=== PATIENT | male | born 1980 | race Caucasian/White ===

== ENCOUNTER 2025-05-27 06:19 | Observation (INO) | payer OTHER, SELFPAY ==
[2025-05-27] VITALS (11 sets, daily range): BP systolic 99–176; BP diastolic 49–97; BMI 36.0
[2025-05-27 01:59] LABS: Hematocrit 44.5 % (39.0-52.0); Hemoglobin 15.6 g/dL (13.0-18.0); Mean Corp Hgb Conc. 35.1 g/dL (33.0-37.0); Mean Corpuscular Volume 87.9 fL (80.0-94.0); Nucleated Red Blood Cells % 0 % (-); Platelet Count 337 10^3/uL (130-400); Red Cell Dist. Width 12.6 % (11.5-14.5)
[2025-05-27 02:23] LABS: ALT (SGPT) 20 U/L (0-50); AST (SGOT) 21 U/L (17-59); Albumin 4.6 g/dl (3.5-5.0); Alkaline Phosphatase 85 U/L (38-126); Blood Urea Nitrogen 20 mg/dl (9-20); Calcium 9.8 mg/dl (8.4-10.2); Carbon Dioxide 26 mmol/L (22-30); Chloride 106 mmol/L (98-107); Estimated Creatinine Clearance > 125 ml/min; Glucose 89 mg/dl (70-99); Potassium 4.2 mmol/L (3.5-5.1); Sodium 140 mmol/L (135-145); Total Protein 7.0 g/dl (6.3-8.2); eGFR > 60.00
--- NOTE | 2025-05-27 02:31 | ED.GENMED ---
History of Present Illness
General
Chief Complaint: Flank Pain
Source: patient
Exam Limitations: none
Time Seen by Provider: 05/27/25 01:28
Nursing documentation reviewed up to this point in time: agreed with
History of Present Illness
History of Present Illness:
Patient is a 45-year-old male who presents to the ER with sudden onset of left upper rib pain. Patient reports around 7:30 PM he was sitting in a restaurant [place] and that he denies any injury reported sudden onset of pain. He reports he went home
and pain progressive worsened. He felt short of breath and had extreme pain with taking a deep breath. He did take ibuprofen.
Pt with no prior history of DVT PE. He does note that he noticed his left knee has been hurting recently but denies any calf swelling or leg swelling. Denies any actual leg pain. 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
Phy Exam
General Physical Exam
General Presentation: no apparent distress
General age: appears stated age
General Skin: warm and dry
General Habitus: normal
General Mental: alert
General Hydration: appears well hydrated
Cardiovascular Exam
Cardiovascular Exam: regular rate/rhythm, no murmur and normal peripheral pulses
Pulmonary Exam
Pulmonary Exam: lungs clear and other (+ tenderness to left anterior rib normal inspection to chest)
Neurological Exam
Neurological Exam: alert and oriented x3
Musculoskeletal Exam
Musculoskeletal Exam: full ROM
Skin Exam
Skin Exam: normal color
Psychiatric Exam
Psychiatric Exam: normal mood/affect
Course
Orders/Labs/Results
Orders:
Orders
05/27/25 00:12
EKG [Electrocardiogram (*1)] Urgent
Reason for Study: Chest Pain
EKG- Treatment ONCE
05/27/25 01:43
Complete Blood Count/With Diff Urgent
Comprehensive Metabolic Panel Urgent
Troponin I Urgent
05/27/25 02:26
CT Chest PE Study Urgent
Comment:
Reason For Exam: SOB pain with deep breath
05/27/25 02:27
0.9% Sodium Chloride 1000 ml [Nss] 1,000 ml IV BOLUS
Ketorolac [Toradol] 15 mg IV NOW STA
05/27/25 Breakfast
Regular
At Your Request: Full Participation
Does patient need a safe tray?: No
05/27/25 06:02
Admit/Transfer Patient As Directed
Co-Sign Provider:
Level of Care: Observation services
Assign to:: Telemetry
Physician / Group: Dustin
Diagnosis: Chest Pain
Reason for Telemetry: Chest Pain syndromes
Date to Stop Telemetry: 05/29/25
Time to Stop Telemetry: 11:00
PRN Pain Medication Management As Directed
May give lesser potent ordered pain med per pt: Yes
preference::
Protocol:: Medication orders for pain may be administered in a
manner that supports deferring to patient preference
when the pt is:
- Requesting an ordered lesser potent pain medication.
Least to most potent pain medications are defined
as: acetaminophen < NSAID < tramadol < opioids
(morphine, oxycodone, hydromorphone).
- Requesting a lesser dose of the same medication IF
ORDERED.
- Requesting a less intrusive route of administration
if both routes are prescribed by the provider (PO <
IV).
05/27/25 06:03
Code Status As Directed
Resuscitation Status: Full Code
05/27/25 07:30
Acetaminophen [Tylenol] 650 mg PO Q4HPRN PRN
Ketorolac [Toradol] 15 mg IV Q6HPRN PRN
05/27/25 07:30
Activity As Directed
Activity Level: Ambulate
EKG with chest pain [ECG as needed] As Directed
ECG as needed for:: Chest Pain
I/O [Intake/ Output] As Directed
Frequency: Per unit guidelines
Vital Signs As Directed
Frequency: Per unit guidelines
Weight As Directed
Frequency: Daily
US Legs, Bilateral [US Periph Venous LOWER Ext Erlin] Urgent
Comment:
Reason For Exam: Calf pain / Chest pain
DX Deep Vein Thrombosis Video Routine
05/27/25 08:00
Pantoprazole [Protonix] 40 mg PO DAILY
05/27/25 09:07
Troponin I Q6H
05/27/25 13:26
Troponin I Q6H
05/27/25 18:00
Enoxaparin Sodium [Lovenox] 40 mg SC QPM
05/29/25 11:00
DC Protocol for Telemetry ONCE
Abnormal Lab Results
05/27/25
01:43
WBC 15.3 H 10^3/uL
(4.8-10.8)
Abs Immat Gran (auto) 0.1 H 10^3/uL
(0-0.05)
Absolute Neuts (auto) 10.2 H 10^3/uL
(1.4-6.5)
Absolute Monos (auto) 1.9 H 10^3/uL
(0.1-0.6)
Lymphocytes % 18.9 L %
(20.5-51.1)
Monocytes % 12.1 H %
(1.7-9.3)
05/27/25 01:43
05/27/25 01:43
Vital Signs
Initial and Last Documented VS:
Initial Vital Signs
Temp Pulse Resp BP Pulse Ox
98 F 84 20 176/97 99
05/27/25 00:08 05/27/25 00:08 05/27/25 00:08 05/27/25 00:08 05/27/25 00:08
Last Documented Vital Signs
Temp Pulse Resp BP Pulse Ox
97.6 F 68 16 125/76 97
05/27/25 15:00 05/27/25 15:00 05/27/25 15:00 05/27/25 15:00 05/27/25 15:00
Retail Support Specialist consulted with Physician
Retail Support Specialist consulted with physician?: Yes
Name of Physician Consulted: Cooper
MDM/Problems Addressed
Differential Diagnosis Includes:
Not limited to muscle pain, pleuritic pain, PE
MDM/Problems Addressed:
As documented patient is a 45-year-old male with complaints of sudden onset of left rib discomfort since 7:30 PM. No known injury. Pain with deep breath. Patient is a transport truck driver and with symptoms we will order CT to rule out PE. Patient denies
any recent cough illness fever chills white count is minimally elevated lungs are clear patient is tender along the left lateral rib.
Case discussed with Dr. Gamboa. CAT scan shows moderate to severe motion artifact no evidence of PE to the level of the lobar branches however recommend V/Q for further imaging and visualization. As discussed with Dr. Gamboa would admit for
continued observation and further testing
*Radiology
Radiology exam reviewed: radiology read reviewed
*Pulse Oximetry
SaO2: 95
Oxygen Mode of Delivery: Room air
Patient hypoxic: no
*Critical Care Note
Total Time (30-74mins, 75-104mins- exclusive of procedures): Not Applicable
ED Attending Note
-
Portions of this chart may have been created with voice recognition software.� Occasional wrong word or��sound alike� substitutions may have occurred due to the inherent limitations of voice recognition software.
Discharge Plan
Departure
Patient Disposition: Admit
Date of Disposition: 05/27/25
Time of Disposition: 04:08
Admit to: Med/Surg
Admit to doctor: hospitalist
Presentation/result/management discussed w/ accepting MD/DO: Hospitalist
Patient with high blood pressure during this ER visit?: Yes
Condition: Fair
Covid-19: Not Applicable
Discharge Problem:
Chest pain, Dyspnea
Interventions
Interventions:
*Risk Screen - Suicide Last Done: 05/27/25 07:45
*General Assessment Last Done: 05/27/25 01:19
*Neglect/Abuse Screening Last Done: 05/27/25 00:08
*ED- Fall Risk Assessment Last Done: 05/27/25 00:08
*ED COVID-19 Vaccine History Last Done: 05/27/25 07:45
*Nursing Disposition Last Done: 05/27/25 07:22
HG-Hesbmf-Rthsqllvxb Assessment Last Done: 05/27/25 01:19
ED-Male Genitourinary Assessment Last Done: 05/27/25 01:19
Discharge Date and Time
Discharge Date/Time: 05/27/25 07:23
[2025-05-27] MEDS: TORADOL 15 MG IV ×2 (02:34→15:17)
[2025-05-27] MEDS: NSS 1000 IV (02:34)
[2025-05-27 02:36] LABS: Troponin I < 0.012 ng/ml
--- NOTE | 2025-05-27 06:06 | HPS.HSE ---
Family Physician
-
Family Physician: Elle Martin MD
Chief Complaint
-
Chest Pain
History of Present Illness
Patient is a 45y M with PMH significant for hypertension who presents to ED complaining of sharp, left-sided chest pain this evening. Patient states that he was feeling well until her developed sudden, sharp pain in the L upper / lateral chest
when sitting down for dinner. He notes that the pain in the lateral left chest continued to progressively increase throughout the evening. By the time he presented to the ED, he was taking very shallow respirations and felt SOB due to the pain.
He denies any recent cough, fevers / chills, abdominal pain, N/V/D. He denies any prior IA, CV disease, etc. No prior h/o similar symptoms.
Patient received Toradol in the ED and at the time of my examination his pain is much improved - though not fully resolved.
He states that the pain is still present with movement or with deep breathing. He states that this PM in the ED there was a focal, tender spot on exam - though that is no longer evident.
Patient reports that he has recently been having cramping / pain in the L knee / LLE when sitting for any extended period. 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
Medical History
Past Medical History
Past Medical History: Reports Other
Additional Past Medical History:
Hypertension
Obesity
GERD
Past Surgical History: Reports Other
Additional Past Surgical History:
RLE Reconstructive Surgery (s/p trauma)
Social History
Tobacco: Former Smoker (Quit smoking 1 year ago. Approx 20 pack years total use.)
Alcohol: Occasional
Drug: None
Personal:
Living: With Family
Family History
Family History: Not pertinent
Allergies / Home Medications
Allergies reflects when Allergies were last updated in [facility].
Home Medications with original date entered in [facility]
Allergy/Medication List:
Allergies
Allergy/AdvReac Type Severity Reaction Status Date / Time
No Known Allergies Allergy Unverified 05/27/25 00:07
Home Medications
lisinopril 10 mg tablet 10 mg PO DAILY 05/27/25
omeprazole magnesium 20 mg tablet,delayed release (Prilosec OTC) 20 mg PO DAILY 05/27/25
propranolol 120 mg capsule,24 hr,extended release 120 mg PO DAILY 05/27/25
Review of Systems
-
History Source: Patient
A 12 point ROS was completed and negative except as noted: Yes
Constitutional: Denies Fever or Chills
EENT: Denies Sore Throat
Respiratory: Reports Trouble Breathing; Denies Cough or Hemoptysis
Cardiac: Reports Chest Pain; Denies Diaphoresis or Palpitations
Abdomen/GI: Denies Abdominal Pain, Nausea, Vomiting or Diarrhea
: Denies Dysuria or Flank Pain
Musculoskeletal: Denies Joint Pain or Edema
Neurological: Denies Dizzy or Headache
Psych: Denies Depression or Anxiety
Physical Exam
Vital Signs
Vital Signs
Temp Pulse Resp BP Pulse Ox
98 F 76 19 99/59 95
05/27/25 00:08 05/27/25 05:00 05/27/25 05:00 05/27/25 05:00 05/27/25 05:00
Physical Exam
General: Other (45y M in no acute distress.)
HEENT: Moist mucous membranes and PERRLA
Respiratory: Clear; No Wheezes, Rales or Rhonchi
Cardiac: S1/S2 and Regular Rhythm; No Murmur
GI: Soft, Non Tender, Non Distended and Normal Bowel Sounds
Musculoskeletal: No Clubbing, No Cyanosis and No Edema
Neuro: AO x 3
Laboratory Results
-
05/27/25 01:43
05/27/25 01:43
Laboratory Results
Total Bilirubin 0.5 mg/dl (0.2-1.3) 05/27/25 01:43
AST 21 U/L (17-59) 05/27/25 01:43
ALT 20 U/L (0-50) 05/27/25 01:43
Alkaline Phosphatase 85 U/L (38-126) 05/27/25 01:43
Troponin I < 0.012 ng/ml 05/27/25 01:43
Impression/Plan
-
A/P: Patient is a 45y M with PMH significant for hypertension who presents to ED complaining of chest pain and SOB.
Chest Pain
- Observe overnight for further evaluation and treatment.
- CTA done in the ED with no evidence of PE in large vessels. Further interpretation limited by motion artifact. Await formal / local read for any additional info.
- V/Q scan was recommended for further evaluation. Will order - though overall suspicion for PE here is low.
- No tachycardia, hypoxemia, etc.
- Check LE US with recent LE pain / cramps.
- Continue supportive care / Toradol PRN / etc.
- Musculoskeletal source of pain (intercostal sprain, rib dysfunction, etc) seems most likely.
- Follow for any new / worsening symptoms.
Benign Hypertension
- BP is on the low side here in the ED.
- Hold usual hypertensive medications acutely.
GERD
- Continue daily PPI.
DVT Prophylaxis: Lovenox
Code Status: Full
[2025-05-27] MEDS: PROTONIX 40 MG PO (07:47)
--- NOTE | 2025-05-27 09:10 | W.PN.UPDATE ---
Addendum entered and electronically signed by Roderick Lawson MD 05/27/25 13:58:
D-dimer 0.28 - negative
Le venous doppler neg.
V/q scan cancelled
d/c home with symptomatic care for pain
Original Note:
Update Note
Progress Note Update
Non billable note
1. Left chest pain - in mid axillary line at lower most ribs, CTA images reviewed and no atelectasis/pneumonia. Motions artifacts on CTA chest but no large vessle PE. V/q scan and LE venous doppler ordered but low probability for VTE based on h/o.
Check D-dimer level and if negative essentialy rules out VTE issues. Chest pain likely can be explained MSK in nature or pleuritic in nature. Pain is already improved and patient able to get around without feeling shortness of breath. Tylenol vs
short nsaid use recommended.
2. Essential HTN - continue home meds of lisinopril and propranolol
Possible d/c today if D-dimer negative,.
[2025-05-27 09:35] LABS: D-Dimer 0.28 ug/mlFEU (0.00-0.50)
[2025-05-27 09:55] LABS: Troponin I < 0.012 ng/ml
--- NOTE | 2025-05-27 11:54 | CM ---
Initial assessment completed with patient who lives with his , 12 y/o son and 10 y/o daughter in a rancher style home with basement, 4 steps to enter. 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
DME or in-home services. No VA benefits. No psychiatric hospitalizations. No HC-POA. PCP is Dr. Elle Martin. Pharmacy is [facility] in [place]. Obs letter completed. Discharge POC: Home with no needs.
--- NOTE | 2025-05-27 12:02 | CM ---
Patient has been medically cleared for discharge to home with no additional skilled services. Patient has arranged for transport home.
[2025-05-27 14:31] LABS: Troponin I < 0.012 ng/ml
[2025-05-27] MEDS: TYLENOL 650 MG PO (15:15)
--- NOTE | 2025-05-27 16:28 | W.DCSUMMARY ---
Discharge Summary
Discharge Data
Date of Admission: 05/27/25
Date of Discharge: 05/27/25
-
Pending Results: No
Hospital Course
Discharging Physician : Dr Roderick Lawson
Disposition : To home
Primary care physician : Dr Elle Martin
Principal Discharge diagnosis :
Left lower rib cage pain likely pleuritic versus musculoskeletal nature
Chronic Discharge diagnosis :
Essential hypertension
Gastroesophageal reflux disease
Hospital Course :
Patient is a 45-year-old male with no significant past medical history except hypertension/reflux came to ER after having new onset of left-sided chest pain in mid axillary line at the lower rib cage. This was acute in onset and sharp in nature
with patient initially feeling some point tenderness with questionable swelling in the area although it ER evaluation nothing was found on exam. A CTA chest was done which was poor quality although ruled out any large vessel blood clots. Troponin
2 sets were negative and EKG did not show any new changes. Patient was admitted for further monitoring with plan for possible VQ scan and lower extremity venous Doppler. D-dimer checked showed normal level. Lower extremity venous Doppler was
negative. VQ scan was canceled. Patient pain was significantly improved within few hours and did not have any associated issues. Pain is likely pleuritic versus musculoskeletal in nature. Patient was provided symptomatic care and discharged home.
Important imaging findings :
None
Procedure findings :
None
Discharge Plan
-
Patient Disposition: Home (Routine Discharge)
Discharge Diagnosis/Procedures: Left sided chest pain
Condition: Fair
Diet: Regular
Activity: As tolerated
Driving Restrictions: As prior to admission
Bathing Restrictions: OK to Shower
Activity Restrictions/Additional Instructions:
Take tylenol for pain control.
Referrals:
Elle Martin MD [Family Provider, [facility]] - in one week
Prescriptions:
New
(DME) Work note
See Rx Instructions .Route .MEDSULY Qty: 1 0RF
Rx Instructions:
Mr Jatinder Hooks is cleared to go back to work from 05/31/25.
acetaminophen [Tylenol Extra Strength] 500 mg tablet
500 mg PO Q6H PRN (Reason: Pain) Qty: 30 0RF
Rx Instructions:
Take 2 Tabs at a time if have severe pain
Continued
lisinopril 10 mg tablet
10 mg PO DAILY
propranolol 120 mg capsule,extended release 24 hr
120 mg PO DAILY
omeprazole magnesium [Prilosec OTC] 20 mg Tablet,Delayed Release (Dr/Ec)
20 mg PO DAILY
Discharge Orders:
Discharge Patient (As Directed); Ordered 05/27/25
Ordered By: Roderick Lawson
Discharge Date and Time
Discharge Date/Time: 05/27/25 15:56
Print Language: ITALIAN
== END 2025-05-27 15:56 | disposition home or self-care (01) ==
LOC: 4 EAST ACU 06:19
PROVIDERS: ADMITTING PHYSICIAN Hospitalist; ATTENDING PHYSICIAN Hospitalist; EMERGENCY PHYSICIAN Student in an Organized Health Care Education/Training Program; FAMILY PHYSICIAN Family Medicine
DX: R07.81 Pleurodynia (principal); I10 Essential (primary) hypertension; E66.9 Obesity, unspecified; K21.9 Gastro-esophageal reflux disease without esophagitis; Z79.899 Other long term (current) drug therapy; Z87.891 Personal history of nicotine dependence
CPT/HCPCS: 71046; 71275; 80053; 84484; 85025; 85379; 93005; 93970; 96361; 96374; 99285; G0378; Q9967